=== PATIENT | female | born 1990 | race African-American/Black ===

== ENCOUNTER 2021-03-20 14:22 | Emergency (ER) | payer BC ==
[~2021-03-20] VITALS: Ht 170.2 cm; Wt 64.0 kg
[2021-03-20] MEDS ORDERED: IBUPROFEN 600MG TABLET PO ONE (15:30)
[2021-03-20 16:30] VITALS: BP 102/61
== END 2021-03-20 16:32 | disposition home or self-care (01) ==
LOC: ER 14:22
DX: M25.471 Effusion, right ankle (principal); J45.909 Unspecified asthma, uncomplicated; Z88.3 Allergy status to other anti-infective agents; Z88.8 Allergy status to other drugs, medicaments and biological substances; Z86.16 Personal history of COVID-19
CPT/HCPCS: 93971; 99284